=== PATIENT | male | born 1990 | race Caucasian/White ===

== ENCOUNTER 2016-06-19 11:42 | Emergency (ER) | payer OTHER ==
[~2016-06-19] VITALS: Ht 170.2 cm; Wt 72.6 kg
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
--- NOTE | 2016-06-19 12:10 | NUR ---
IV ACCESS STARTED.
--- NOTE | 2016-06-19 12:20 | NUR ---
XRAY DONE AT BS.
[2016-06-19] MEDS ORDERED: HYDROMORPHONE 1 MG/1 ML DISP.SYRIN IV ONE (12:30)
[2016-06-19] MEDS ORDERED: IV NS 0.9% 1,000 ML BAG IV ONE (12:30)
[2016-06-19] MEDS ORDERED: HYDROMORPHONE 1 MG/1 ML DISP.SYRIN ONE (12:34)
[2016-06-19] MEDS ORDERED: IV NS 0.9% 500 ML IV ONE (12:46)
[2016-06-19] MEDS ORDERED: PROPOFOL 0 ML IV ONE (12:46)
[2016-06-19] MEDS ORDERED: IV SET PRIMARY PUMP SET 1 EA INFUS.SET MC ONE (12:46)
[2016-06-19] MEDS ORDERED: PROPOFOL 20 ML IV ONE (12:50)
[2016-06-19] MEDS ORDERED: PROPOFOL 200 MG/20 ML VIAL IV ONE (13:00)
--- NOTE | 2016-06-19 13:10 | NUR ---
CLOSED REDUCTION OF B SHOULDER DONE AT . ASSISTED DR. ROWELL. PT AAOX3. VSS. SLING APPLIED ON LEFT ARM. WILL MONITOR.
--- NOTE | 2016-06-19 14:12 | NUR ---
IV removed. Catheter intact and site benign. Pressure and 4x4 applied to site. No bleeding noted.Patient discharged to home in stable condition. Written and verbal after care instructions given. Patient verbalizes understanding of instruction. Pt ambulatory with a steady gait.
[2016-06-19 14:13] VITALS: BP 128/97
== END 2016-06-19 14:15 | disposition home or self-care (01) ==
LOC: ER 11:44
DX: S43.084A Other dislocation of right shoulder joint, initial encounter (principal); S43.085A Other dislocation of left shoulder joint, initial encounter; R56.9 Unspecified convulsions; X58.XXXA Exposure to other specified factors, initial encounter; Y93.9 Activity, unspecified; Y92.9 Unspecified place or not applicable; Y99.9 Unspecified external cause status
CPT/HCPCS: 73030-TC; A4606; J1170; J2704; J7040; Z7610